=== PATIENT | female | born 1965 | race Caucasian/White ===

== ENCOUNTER 2019-09-20 14:37 | Emergency (ER) | payer MEDICAID, SELFPAY ==
[2019-09-20 14:45] VITALS: BP 159/101; PULSE 108; RESP 20; TEMP 37.2; O2SAT 99
--- NOTE | 2019-09-20 14:55 | ED.SKABFB ---
HPI - Skin/Abscess/Foreign Bdy General Chief complaint: Skin/Abscess/Foreign Body Stated complaint: poison dianne or sumak Time Seen by Provider: 09/20/19 14:55 Source: patient Mode of arrival: ambulatory Limitations: no limitations History of Present Illness HPI narrative: Sonia Abdul is a 54 yo female with no PMH who comes to express care with contact dermatitis assumed to be poison dianne from doing yard work. Has continued to spread to face arms and now on right side Related Data Home Medications Medication Instructions Recorded Confirmed No Home Medications 09/20/19 09/20/19 Allergies Allergy/AdvReac Type Severity Reaction Status Date / Time codeine AdvReac Unknown Verified 09/20/19 14:53 Review of Systems Review of Systems: Narrative: CONSTITUTIONAL: Denies fever, chills, sweats. EYES: Denies visual changes, redness, discharge. ENT: Denies rhinorrhea, congestion, sore throat, otalgia. CARDIOVASCULAR: Denies chest pain, palpitations, edema. RESPIRATORY: Denies dyspnea, wheezing, cough GASTROINTESTINAL: Denies abdominal pain, nausea, vomiting, diarrhea. GENITOURINARY: Denies dysuria, hematuria, abnormal discharge SKIN: Denies rash or itching.rash on hands, L lower face, neck, chest NEUROLOGIC: Denies numbness, or focal weakness. PSYCHIATRIC: Denies anxiety or depression. [facility] Family History Family History (Updated 09/20/19 @ 14:56 by Angeles Adame CNP) Other No active medical problems Social History Social History (Updated 09/20/19 @ 14:57 by Angeles Adame CNP) Smoking status: Never smoker Alcohol intake: current Comments At time of signature, I agree with nursing past medical, surgical, social and family history. There is no relevant family history pertinent to the presenting complaint. Patient is pressure is elevated and will follow-up with PCP Exam Narrative: Exam Narrative: GENERAL: This is a well-nourished, well-developed patient, in mild distress. HEAD: normocephalic, atraumatic. EYES: Sclera clear/white. Vision is grossly intact. EARS: External ears normal, Hearing grossly intact. NOSE: External nose normal without nasal discharge, nares without redness, no rhinorrhea. THROAT: Mucous membranes moist, NECK: Neck supple, non-tender CARDIOVASCULAR: Regular rate and rhythm without murmurs, gallops, or rubs. RESPIRATORY: Clear to auscultation. Breath sounds equal bilaterally. No wheezes, GASTROINTESTINAL: Abdomen soft, non-tender, SKIN: warm, intact with no suspicious lesions rash is macular papular on dorsum of hands and wrists, L lower face, neck, chest, small area L torso NEURO: awake, alert, and oriented to person, place and time. There were no obvious focal neurologic abnormalities. Steady gait EXTREMITIES: Normal range of motion. BACK: Nontender without deformity Course Course Emergency Course: Started on Medrol Dosepak Benadryl, Pepcid Referral to PCP given Vital Signs Vital signs: Vital Signs Temperature 98.9 F 09/20/19 14:45 Pulse Rate 108 H 09/20/19 14:45 Respiratory Rate 09/20/19 14:45 Blood Pressure 159/101 H 09/20/19 14:45 Pulse Oximetry 99 09/20/19 14:45 Temperature 98.9 F 09/20/19 14:45 Pulse Rate 108 H 09/20/19 14:45 Respiratory Rate 09/20/19 14:45 Blood Pressure 159/101 H 09/20/19 14:45 Pulse Oximetry 99 09/20/19 14:45 MDM - Skin/Abscess/Foreign Bdy Differential Diagnosis Differential diagnosis: Likely viral exanthem, urticaria, insect bites and contact dermatitis Discharge Plan Discharge Clinical Impression: Contact dermatitis Qualifiers: Contact dermatitis type: allergic Contact dermatitis trigger: other trigger Qualified Code(s): L23.89 - Allergic contact dermatitis due to other agents Patient Disposition: Home, Self-Care Condition: Stable Instructions: Contact Dermatitis (DC) Prescriptions: New methylprednisolone [Medrol (Geovanni)] 4 mg tablets,dose pack See Rx Instructions .
== END 2019-09-20 15:10 | disposition home or self-care (01) ==
PROVIDERS: Emergency Provider Nurse Practitioner
DX: L23.89 Allergic contact dermatitis due to other agents (principal)
CPT/HCPCS: 99213; G0463